=== PATIENT | male | born 1985 | race Caucasian/White ===

== ENCOUNTER 2019-07-25 21:14 | Emergency (ER) | payer SELFPAY ==
[2019-07-25 21:21] VITALS: BP 136/80
--- NOTE | 2019-07-25 21:53 | Event Note ---
ED Screening Note ED Screening Note: 750 ml of liquor per day states he has been drinking for 5 days in a row +n/v +abd pain no diarrhea no fever no SI no HI no hallucinations PMHx asthma no allergies to meds non smoker no drug use This initial assessment/diagnostic orders/clinical plan/treatment(s) is/are subject to change based on patients health status, clinical progression and re- assessment by fellow clinical providers in the ED. Further treatment and workup at subsequent clinical providers discretion. Patient/guardian urged not to elope from the ED as their condition may be serious if not clinically assessed and managed. Initial orders include: labs, UDS
== END 2019-07-26 01:14 | disposition left against medical advice (07) ==
LOC: ED 21:14
DX: R11.2 Nausea with vomiting, unspecified (principal); Z53.21 Procedure and treatment not carried out due to patient leaving prior to being seen by health care provider